=== PATIENT | female | born 1995 | race Two or more races ===

== ENCOUNTER 2020-07-07 20:33 | Emergency (ER) | payer MEDICAID, OTHER ==
[~2020-07-07] VITALS: Ht 152.4 cm; Wt 78.0 kg
[2020-07-07 21:23] VITALS: BP 122/88
== END 2020-07-07 21:36 | disposition home or self-care (01) ==
LOC: ED 21:15
DX: B35.4 Tinea corporis (principal); R21 Rash and other nonspecific skin eruption
CPT/HCPCS: 99282

== ENCOUNTER 2020-09-13 08:20 | Emergency (ER) | payer MEDICAID ==
[~2020-09-13] VITALS: Ht 152.4 cm; Wt 77.7 kg
--- NOTE | 2020-09-13 08:47 | NUR ---
counselor camp: pt from lobby to room 7
--- NOTE | 2020-09-13 08:53 | NUR ---
PT AMBULATED TO ROOM FROM LOBBY. PT CO RIGHT LOW BACK/FLANK PAIN. PT STATED THAT SHE HAS A HX OF KIDNESY STONES WITH BILATERAL STENTS. PT DENIES ANY PAINFUL URINATION OF BLOOD IN URINE. PT DENIES ANY FEVER.
[2020-09-13 09:03] VITALS: BP 117/79
[2020-09-13 09:03] LABS: BASOPHILS % (AUTO) 1 % (0-1); EOSINOPHILS % (AUTO) 2 % (1-7); LYMPHOCYTES % (AUTO) 37 % (22-44); MEAN CORPUSCULAR HEMOGLOBIN 31.8 pg (27.0-34.8); MEAN CORPUSCULAR HGB CONC 34.2 g/dL (32.4-35.8); MEAN PLATELET VOLUME 9.5 fL (7.4-10.4); MONOCYTES % (AUTO) 8 % (2-9); NEUTROPHILS % (AUTO) 52 % (42-75); PLATELET COUNT 248 x10^3/uL (130-400); RED BLOOD COUNT 4.74 x10^6/uL (3.82-5.3); RED CELL DISTRIBUTION WIDTH 13.1 % (9.6-15.2)
[2020-09-13 09:04] LABS: MD NO
[2020-09-13 09:14] LABS: ANION GAP 4 mmol/L (5-15); CALCIUM 8.8 mg/dL (8.5-10.1); CHLORIDE 109 mmol/L (98-107); CREATININE 0.66 mg/dL (0.55-1.02)
[2020-09-13 09:15] LABS: ALANINE AMINOTRANSFERASE 47 U/L (12-78)
[2020-09-13 09:15] LABS: MICROSCOPIC INDICATED
[2020-09-13 09:19] LABS: ALKALINE PHOSPHATASE 98 U/L (45-117); BILIRUBIN,TOTAL 1.1 mg/dL (0.2-1.0); TOTAL PROTEIN 7.7 g/dL (6.4-8.2)
[2020-09-13] MEDS ORDERED: KETOROLAC 30 MG/1 ML ONE (09:22)
[2020-09-13] MEDS ORDERED: KETOROLAC 30 MG/1 ML IM ONE (09:30)
--- NOTE | 2020-09-13 10:32 | NUR ---
DISCHARGE INSTRUCTIONS REVIEWED WITH PT. ALL QUESTIONS ANSWERED AT THIS TIME.
== END 2020-09-13 10:51 | disposition home or self-care (01) ==
LOC: ED 09:14
DX: N20.1 Calculus of ureter (principal); R31.9 Hematuria, unspecified; R10.9 Unspecified abdominal pain; M54.5 Low back pain
CPT/HCPCS: 36415; 74176; 80053; 81001; 83690; 84703; 85025; 96372; 99284; J1885